=== PATIENT | female | born 1965 | race Caucasian/White ===

== ENCOUNTER 2022-04-15 15:19 | Outpatient (CLI) | payer OTHER, SELFPAY ==
--- NOTE | 2022-04-15 15:40 | CRLHL7_ITS ---
For Patients: As a result of the Cures Act, medical imaging exams and procedure reports are released immediately into your electronic medical record. You may view this report before your referring provider. If you have questions, please contact your health care provider. BILATERAL SCREENING MAMMOGRAM WITH COMPUTER-AIDED DETECTION AND TOMOSYNTHESIS TECHNIQUE: CC and MLO views were obtained. These mammographic images have been obtained using full-field digital technique. These mammographic images were interpreted with the benefit of computer-aided detection. Breast Tomosynthesis was used in this interpretation. COMPARISON FILM: 01/25/21, 01/18/20, 01/22/17. FINDINGS: There are scattered areas of fibroglandular density IMPRESSION: There is no radiographic evidence for malignancy. ASSESSMENT: BI-RADS Category 1: Negative RECOMMENDATION: Routine screening mammogram in 1 year. A lay language report of this examination will be provided to the patient. Stanley Gonzales M.D. Diagnostic Radiologist [email or web address]/[email or web address] / be/Dictated by: Stanley Gonzales MD @ 04/16/2022 12:15:00 PM (Electronically Signed)
== END 2022-04-15 15:20 | disposition home or self-care (01) ==
LOC: MAMMO 15:21
PROVIDERS: PCP Nurse Practitioner Family; Visit Provider Nurse Practitioner Family
DX: Z12.31 Encounter for screening mammogram for malignant neoplasm of breast (principal)
CPT/HCPCS: 77063; 77067

== ENCOUNTER 2023-03-27 15:21 | Outpatient (CLI) | payer OTHER, SELFPAY | END 2023-03-27 15:22 | disposition home or self-care (01) | PROVIDERS: PCP Nurse Practitioner Family; Visit Provider Family Medicine | DX: Z00.00 Encounter for general adult medical examination without abnormal findings (principal); Z13.6 Encounter for screening for cardiovascular disorders; Z13.1 Encounter for screening for diabetes mellitus; Z11.59 Encounter for screening for other viral diseases | CPT/HCPCS: 80053; 80061; 86803 ==

== ENCOUNTER 2023-04-16 15:22 | Outpatient (CLI) | payer OTHER, SELFPAY ==
--- NOTE | 2023-04-16 15:40 | MM_ITS ---
[facility]: [facility] Patient ID:?[id number] Site Patient ID:?[id number]. Site :?[id number] Study:?XRay-Breast Bilateral 3D W/CAD-04/16/2023 4:29:27 PM Ordering Physician:Tramaine Final Report: BILATERAL SCREENING MAMMOGRAM WITH COMPUTER-AIDED DETECTION AND TOMOSYNTHESIS TECHNIQUE: CC and MLO views were obtained. These mammographic images have been obtained using full-field digital technique. These mammographic images were interpreted with the benefit of computer-aided detection. Breast Tomosynthesis was used in this interpretation. COMPARISON FILM: 04/15/21, 01/25/21, 01/18/20. FINDINGS: There are scattered areas of fibroglandular density, IMPRESSION: There is no radiographic evidence for malignancy. ASSESSMENT: BI-RADS Category 1: Negative RECOMMENDATION: Routine screening mammogram in 1 year. A lay language report of this examination will be provided to the patient. Stanley Gonzales M.D. Diagnostic Radiologist [email or web address] DSM/sp R& Transcribed: 2:51 p.m. SP/Dictated by: Stanley Gonzales MD @ 04/17/2023 12:44:00 PM Signed by:?Stanley Gonzales MD @04/17/2023 3:04:01 PM (Electronic Signature)
== END 2023-04-16 15:23 | disposition home or self-care (01) ==
PROVIDERS: PCP Family Medicine
DX: Z12.31 Encounter for screening mammogram for malignant neoplasm of breast (principal)
CPT/HCPCS: 77063; 77067

== ENCOUNTER 2024-06-16 09:35 | Outpatient (CLI) | payer OTHER, SELFPAY ==
--- NOTE | 2024-06-16 10:15 | CRLHL7_ITS ---
For Patients: As a result of the Century Cures Act, medical imaging exams and procedure reports are released immediately into your electronic medical record. You may view this report before your referring provider. If you have questions, please contact your health care provider. INDICATION: BILATERAL SCREENING MAMMOGRAM, ASYMPTOMATIC 59 YEAR OLD FEMALE COMPARISON: 04/16/23, 04/15/22, 01/25/21 TECHNIQUE: CC and MLO views were obtained. These mammographic images have been obtained using full-field digital technique. These mammographic images were interpreted with the benefit of computer aided detection and tomosynthesis. BREAST COMPOSITION: There are scattered areas of fibroglandular density. FINDINGS: No suspicious findings. ASSESSMENT: BI-RADS 1 Negative RECOMMENDATION: Annual screening mammogram. A lay language report of this examination will be provided to the patient. Dictated by: Stanley Gonzales MD @ 06/16/2024 11:52:45 (Electronically Signed)
== END 2024-06-16 09:36 | disposition home or self-care (01) ==
LOC: MAMMO 09:36
PROVIDERS: PCP Family Medicine; Visit Provider Family Medicine
DX: Z12.31 Encounter for screening mammogram for malignant neoplasm of breast (principal); Z13.6 Encounter for screening for cardiovascular disorders; Z13.9 Encounter for screening, unspecified
CPT/HCPCS: 77063; 77067; 80053; 80061

== ENCOUNTER 2025-01-16 12:58 | Outpatient (CLI) | payer OTHER, SELFPAY ==
--- NOTE | 2025-01-24 09:47 | W.PM.SLEEP ---
Sleep Study Details Details Interpreting Provider: Cassi Date of Sleep Study: 01/16/25 Sleep Study Details: STUDY TYPE:? Home unattended ? BMI:? 28.43 ORDERING PROVIDER:Fidel Simon INDICATION:? Concern for sleep apnea ? SLEEP SUMMARY:? 517 minutes RESPIRATORY SUMMARY:? AHI 37.6 per rule 1 a, 25.6 per CMS guideline Low oxygen 73 7.7% of study oxygen less than 90% Snoring 98.5% PERIODIC LIMB MOVEMENTS OF SLEEP:? Not recorded CARDIAC:? Range 61-110, mean 74.5 beats per minute IMPRESSION:? Severe obstructive sleep apnea RECOMMENDATION: Favor treatment option would be CPAP.
== END 2025-01-16 12:59 | disposition home or self-care (01) ==
LOC: SLEEP 12:59
PROVIDERS: PCP Family Medicine; Visit Provider Family Medicine
DX: G47.33 Obstructive sleep apnea (adult) (pediatric) (principal)
CPT/HCPCS: 95806